=== PATIENT | female | born 1985 | race Asian ===

== ENCOUNTER 2021-06-04 14:43 | Outpatient (CLI) | payer BC, OTHER | END 2021-06-04 14:44 | disposition home or self-care (01) | LOC: MRI 14:43 | PROVIDERS: ATTEND Anesthesiology Pain Medicine | DX: M51.36 Other intervertebral disc degeneration, lumbar region (principal); M47.816 Spondylosis without myelopathy or radiculopathy, lumbar region; M43.8X6 Other specified deforming dorsopathies, lumbar region | CPT/HCPCS: 72148 ==